=== PATIENT | male | born 1970 | race Caucasian/White ===

== ENCOUNTER 2017-12-23 10:43 | Emergency (ER) | payer MEDICAID ==
[~2017-12-23] VITALS: Ht 185.4 cm; Wt 74.0 kg
[2017-12-23] MEDS ORDERED: KETOROLAC 30 MG/1 ML IM ONE (11:30)
[2017-12-23] MEDS ORDERED: KETOROLAC 30 MG/1 ML ONE (11:32)
[2017-12-23 12:24] VITALS: BP 160/91
== END 2017-12-23 12:28 | disposition home or self-care (01) ==
LOC: ED 12:25
DX: S16.1XXA Strain of muscle, fascia and tendon at neck level, initial encounter (principal); F17.200 Nicotine dependence, unspecified, uncomplicated; V49.9XXA Car occupant (driver) (passenger) injured in unspecified traffic accident, initial encounter; Y93.89 Activity, other specified; Y92.89 Other specified places as the place of occurrence of the external cause; Y99.8 Other external cause status
CPT/HCPCS: 72125; 96372; 99284; J1885